=== PATIENT | female | born 1935 | race Caucasian/White ===

== ENCOUNTER 2016-10-12 14:27 | Observation (INO) | payer OTHER, MEDICARE ==
[2016-10-12] MEDS ORDERED: ONDANSETRON 4 MG/2 ML VIAL IVPUSH ONE (14:35)
[2016-10-12] MEDS ORDERED: SODIUM CHLORIDE 1,000 ML IV STA (14:35)
[2016-10-12] MEDS ORDERED: ONDANSETRON 4 MG/2 ML VIAL ONE (15:17)
[2016-10-12 15:33] LABS: BASOPHIL 0.3 % (0-2.0); EOSINOPHIL 0.4 % (0-4.5); MCH 29.6 pg (25.7-33.7); MCHC 34.1 g/dl (32.0-36.0); MEAN CELL VOLUME 86.9 fl (80-96); MEAN PLT VOLUME 8.5 fl (7.5-11.1); NEUTROPHILS 87.7 % (42.8-82.8); PLATELET COUNT 187 K/MM3 (134-434); RDW 13.1 % (11.6-15.6); WHITE BLOOD COUNT 7.6 K/mm3 (4.0-10.8)
[2016-10-12] MEDS ORDERED: CLOPIDOGREL BISULFATE 75 MG TABLET (FP) PO ONE (15:35)
[2016-10-12] MEDS ORDERED: ASPIRIN 81 MG CHEWABLE TABLETS PO ONE (15:35)
[2016-10-12 15:42] LABS: CPK(DFH) 64 IU/L (26-140)
[2016-10-12 15:43] LABS: ALBUMIN 3.7 g/dl (3.5-5.0); ALK PHOS 45 U/L (32-92); AMYLASE 34 U/L (25-125); ANION GAP 9 (8-16); BILIRUBIN,TOTAL 0.8 mg/dl (0.2-1.0); CALCIUM 8.6 mg/dl (8.4-10.2); CO2 19 mmol/L (22-28); CREATININE 0.7 mg/dl (0.6-1.3); GLUCOSE,RANDOM 126 mg/dl (74-106); SGOT/AST 16 U/L (10-42); SGPT/ALT 14 U/L (10-40); TOT PROT 5.7 g/dl (6.4-8.3)
[2016-10-12] MEDS ORDERED: ASPIRIN 81 MG CHEWABLE TABLETS ONE (16:02)
[2016-10-12] MEDS ORDERED: CLOPIDOGREL BISULFATE 75 MG TABLET (FP) ONE (16:03)
[2016-10-12 16:39] LABS: TROPONIN I (DFP) < 0.03 ng/ml (0.03-0.50)
--- NOTE | 2016-10-12 16:55 | PDOC ---
History of Present Illness - General History Source: Patient Exam Limitations: No Limitations - History of Present Illness Initial Comments: 10/12/16 17:00 Patient is a 81 year old female with a significant past medical history of Afib , polymyalgia rheumatica (developed at 72 yo), CAD ( inferior myocardial infarction stenting of the right coronary artery 10/2011 & AR with stenting of the RCA and LAB 05/2016), HTN, HLD, recurrent UTIs(resistant to many strains), Carotid artery stenosis, Esophageal reflux, Adrenal insufficiency, Giant cell arteritis, Ischemic colitis with partial colectomy 2010, Thyroid disease who presents to the ED with nausea and vomiting. Patient states that she woke up this morning feeling weak and dizzy, she began experiencing nausea and vomited nbnb. Patient denies eating anything out of the ordinary for her. She states that she felt the need to lay down due to the nausea and weakness. She reports increased nausea on exertion. She notes that these symptoms are similar to the symptoms of 05/2016 AR which prompted her to present to the ED. She denies any chest pain or SOB. She denies any LOC, fall or recent trauma. She reports good colostomy output and air. Patient had an ECHO in 05/2016: inferior wall hypokinesis with a preserved left ventricular ejection fraction. EF 56%. Mild mitral regurgitation. Allergies: dilaudid, pravachol , simvastatin <Fadumo Aaron - Last Filed: 10/12/16 16:59> <Tresa Lopez - Last Filed: 10/13/16 10:42> - General Chief Complaint: Nausea/Vomiting Stated Complaint: NAUSEA & VOMTING Time Seen by Provider: 10/12/16 14:32 Past History <Fadumo Aaron - Last Filed: 10/12/16 16:59> - Past Medical History Cardiac Disorders: Yes (A-FIB, CAD) CVA: No (CAROTID ARTERY STENOSIS) GI Disorders: Yes (ISCHEMIC COLITIS, GERD) HTN: Yes Hypercholesterolemia: Yes Other medical history: ADRENAL INSUFF, ORTHOSTATIC HYPOTENSION, POLYMYALGIC RHEUMATICA - Surgical History Abdominal Surgery: Yes (PARTIAL COLECTOMY) Cardiac Surgery: Yes (STENT X3) - Psycho/Social/Smoking Cessation Hx Anxiety: No Suicidal Ideation: No Smoking History: Never smoked Hx Alcohol Use: Yes (OCCASIONAL) Drug/Substance Use Hx: No Substance Use Type: None <Tresa Lopez - Last Filed: 10/13/16 10:42> - Past Medical History Allergies/Adverse Reactions: Allergies Allergy/AdvReac Type Severity Reaction Status Date / Time pravastatin sodium Allergy Mild Rash Verified 10/12/16 15:08 [From Pravachol] hydromorphone HCl Allergy Unknown Verified 10/12/16 15:08 [From Dilaudid] simvastatin AdvReac Intermediate Verified 10/12/16 15:08 Home Medications: Ambulatory Orders Acetaminophen [Tylenol Extra Strength] 500 mg PO DAILY PRN 10/12/16 Aspirin [Aspirin EC] 81 mg PO DAILY 10/12/16 Atorvastatin Ca [Lipitor] 10 mg PO HS 10/12/16 Bethanechol Chloride [Urecholine] 25 mg PO TID 10/12/16 Calcium Crb,Cit/D3/Min34/Belén [Citracal + Bone Density Tablet] 1 each PO DAILY 10/12/16 Clopidogrel Bisulfate [Plavix -] 75 mg PO DAILY 10/12/16 Cranberry 500 mg PO DAILY 10/12/16 Estradiol [Estrace] 42.5 gm VG DAILY 10/12/16 Gabapentin [Neurontin] 300 mg PO TID PRN 10/12/16 Hydroxychloroquine Sulfate [Plaquenil] 200 mg PO BID 10/12/16 Lisinopril 5 mg PO DAILY 10/12/16 Methenamine Hippurate [Hiprex [Nf] -] 1 gm PO BID 10/12/16 Metoprolol Tartrate [Lopressor -] 25 mg PO BID 10/12/16 Multivit-Min/Iron/Folic/Lutein [Centrum Silver Women Tablet] 1 each PO DAILY 09/23 Prednisone 5 mg PO DAILY 10/12/16 Zoledronic Acid/Man/Water [RECLAST 5 MG/100 Ml Solution] 5 mg IV ASDIR 10/12/16 Review of Systems - Review of Systems Able to Perform ROS?: Yes Comments:: 10/12/16 17:00 GENERAL/CONSTITUTIONAL:(+)weakness No: fever, chills, loss of appetite. HEAD, EYES, EARS, NOSE AND THROAT: No: change in vision, ear pain, discharge, sore throat, throat swelling. CARDIOVASCULAR: (+)lightheaded No: chest pain, palpitations, syncope RESPIRATORY: No: cough, shortness of breath, wheezing, hemoptysis, stridor. GASTROINTESTINAL: (+)nausea, vomiting. No: abdominal cramping, diarrhea, rectal bleeding, constipation. GENITOURINARY: No: dysuria, hematuria, frequency, urgency, flank pain. MUSCULOSKELETAL: No: back pain, neck pain, joint pain, muscle swelling or pain SKIN: No: lesions, pallor, rash or easy bruising. NEUROLOGIC: No: headache, vertigo, paresthesias ENDOCRINE: No: unexplained weight gain or loss HEMATOLOGIC/LYMPHATIC: No: anemia, easy bleeding, swelling nodes <Fadumo Aaron - Last Filed: 10/12/16 16:59> *Physical Exam - Vital Signs Last Vital Signs Temp Pulse Resp BP Pulse Ox 98.3 F 58 L 16 188/64 98 10/12/16 14:29 10/12/16 14:29 10/12/16 14:29 10/12/16 15:25 10/12/16 14:29 - Physical Exam Comments: 10/12/16 17:00 GENERAL: The patient is in no acute distress. HEAD: Normal with no signs of trauma. EYES: PERRLA, EOMI, sclera anicteric, conjunctiva clear. ENT: Ears normal, nares patent, oropharynx clear without exudates. Moist mucous membranes. NECK: Normal range of motion, supple without lymphadenopathy, JVD, or masses. LUNGS: Breath sounds equal, clear to auscultation bilaterally. No wheezes, and no crackles. HEART:(+)bradycardic. normal S1 and S2 without murmur, rub or gallop. ABDOMEN: (+)ostomy in place. Soft, nontender, normoactive bowel sounds. No guarding, no rebound. EXTREMITIES: Normal range of motion, no edema. No clubbing or cyanosis. No erythema, or tenderness. NEUROLOGICAL: Cranial nerves II through XII grossly intact. Normal speech. No focal neurological deficits. MUSCULOSKELETAL: Back nontender to palpation, no CVA tenderness SKIN: Warm, Dry, normal turgor, no rashes or lesions noted. <Fadumo Aaron - Last Filed: 10/12/16 16:59> - Vital Signs Last Vital Signs Temp Pulse Resp BP Pulse Ox 98.3 F 58 L 16 188/64 98 10/12/16 14:29 10/12/16 14:29 10/12/16 14:29 10/12/16 14:29 10/12/16 14:29 <Tresa Lopez - Last Filed: 10/13/16 10:42> Heart Score/ECG Review #1 ECG reviewed & interpreted by me at: 16:58 10/12/16 16:58 Twelve-lead EKG was performed and reviewed by me. There is normal sinus rhythm with a bradycardiac rate. The axis is normal. The intervals are normal - pr: 178ms, QRS:88ms, QTc:445ms. There are no ST elevations. T wave inversions III Q III, aVF <Tresa Lopez - Last Filed: 10/13/16 10:42> ED Treatment Course - LABORATORY CBC & Chemistry Diagram: 10/12/16 15:15 10/12/16 15:15 - ADDITIONAL ORDERS Additional order review: Laboratory Results 10/12/16 10/12/16 15:15 15:15 Sodium 127 L Potassium 4.2 Chloride 99 Carbon Dioxide 19 L Anion Gap 9 BUN 13 Creatinine 0.7 Creat Clearance w eGFR > 60 Random Glucose 126 H Calcium 8.6 Total Bilirubin 0.8 AST 16 ALT 14 Alkaline Phosphatase 45 Creatine Kinase 64 Troponin I < 0.03 L Total Protein 5.7 L Albumin 3.7 Total Amylase 34 Lipase 27 10/12/16 15:15 RBC 4.19 MCV 86.9 MCHC 34.1 RDW 13.1 MPV 8.5 Neutrophils % 87.7 H Lymphocytes % 5.1 L Monocytes % 6.5 Eosinophils % 0.4 Basophils % 0.3 - Medications Given in the ED: ED Medications Discontinued Medications Generic Name Dose Route Start Last Admin Trade Name Freq PRN Reason Stop Dose Admin Aspirin 162 mg 10/12/16 15:35 10/12/16 16:05 Asa - PO 10/12/16 15:36 162 mg ONCE ONE Administration Clopidogrel Bisulfate 75 mg 10/12/16 15:35 10/12/16 16:05 Plavix - PO 10/12/16 15:36 75 mg ONCE ONE Administration Ondansetron HCl 4 mg 10/12/16 14:35 10/12/16 15:25 Zofran Injection IVPUSH 10/12/16 14:36 4 mg ONCE ONE Administration <Fadumo Aaron - Last Filed: 10/12/16 16:59> - LABORATORY CBC & Chemistry Diagram: 10/13/16 07:25 10/12/16 22:00 <Tresa Lopez - Last Filed: 10/13/16 10:42> Medical Decision Making - Medical Decision Making A portion of this note was documented by scribe services under my direction. I have reviewed the details of the note, within reason, and agree with the documentation with the following case summary and management plan written by me. Nursing documentation reviewed and incorporated into medical decision making 10/12/16 16:55 This patient is an 81-year-old female with a extensive past medical history who presents emergency department with a complaint of nausea and vomiting. Patient states she is recently status post an AR and stenting in May of this year. Her symptoms are reminiscent of the symptoms that brought her to the ER when she had a heart attack. Patient states she felt that she needed to lay down. She's had no fever or chills. She has been nauseous. (+) stool and gas in ostomy. On examination: Bradycardia, no murmur. Lungs clear to auscultation. No abdominal tenderness to palpation. 10/12/16 16:56 Laboratory Tests 10/12/16 10/12/16 10/12/16 15:15 15:15 15:15 WBC 7.6 Hgb 12.4 Hct 36.4 Plt Count 187 Neutrophils % 87.7 H Lymphocytes % 5.1 L Sodium 127 L Potassium 4.2 Chloride 99 Carbon Dioxide 19 L BUN 13 Creatinine 0.7 Random Glucose 126 H Creatine Kinase 64 Troponin I < 0.03 L 10/12/16 16:57 Pending chest x-ray. Case discussed with Dr. Gonzalez Patient images hyponatremia, and bicarbonate of 19. Will continue to hydrate. Will admit to telemetry 10/13/16 10:42 <Tresa Lopez - Last Filed: 10/13/16 10:42> *DC/Admit/Observation/Transfer - Attestations Scribe Attestion: 10/12/16 17:00 Documentation prepared by NII Rhodes, acting as medical staff coordinator for Tresa Lopez MD. <Fadumo Aaron - Last Filed: 10/12/16 16:59> - Discharge Dispostion Admit: Yes <Tresa Lopez - Last Filed: 10/13/16 10:42> Diagnosis at time of Disposition: Hyponatremia Nausea & vomiting Qualifiers: Vomiting type: unspecified Vomiting Intractability: non-intractable Qualified Code(s): R11.2 - Nausea with vomiting, unspecified - Discharge Dispostion Condition at time of disposition: Stable
[2016-10-12] MEDS ORDERED: GABAPENTIN 300 MG CAPSULE (FP) PO PRN (19:44)
[2016-10-12] MEDS ORDERED: ACETAMINOPHEN 500 MG TABLET (FP) PO PRN (19:44)
[2016-10-12] MEDS: HYDROXYCHLOROQUINE SO4 200 MG TABLET (FP) PO SCH (21:34)
--- NOTE | 2016-10-12 21:55 | HP ---
CHIEF COMPLAINT: weak, nausea, vomiting [place]CP: in [place] HISTORY OF PRESENT ILLNESS: This is an 81 year old female with extensive PMH as below who presented to the ED feeling weak and tired since yesterday and today had nausea and vomiting. States that she felt similar to when she had HI in May. On exam, pt feeling better. Weakness improving. Tolerated soup for dinner. Denies chest pain, palpitations. ER course was notable for: (1) Sodium 127 (2) troponin 0.03 Recent Travel: [place] PAST MEDICAL HISTORY: Atrial fibrillation--brief episode 2011, no further episodes CAD- HI 10/2011, s/p stent RCA, HI 05/2016, stenting of RCA and LAD HTN HLD carotid artery stenosis adrenal insufficiency with orthostatic hypotension esophageal reflux Giant cell arteritis, Polymyalgia rheumatica ischemic colitis s/p partial colectomy 2010 thyroid disorder recurrent UTIs PAST SURGICAL HISTORY: stent x 3 partial colectomy B/L cataract Social History: Smoking: in college only Alcohol: occ glass of wine with dinner, last on Wednesday Drugs: pt denies Family History: Mother age 83, esophageal CA Father in 70s, heart trouble. H/o HI in 50s sister healthy Allergies pravastatin sodium [From Pravachol] Allergy (Mild, Verified 10/12/16 15:08) Rash MYALGIA hydromorphone HCl [From Dilaudid] Allergy (Unknown, Verified 10/12/16 15:08) HALLUCINATIONS simvastatin Adverse Reaction (Intermediate, Verified 10/12/16 15:08) INCREASED LFT HOME MEDICATIONS: 3 Medication Instructions Recorded Acetaminophen [Tylenol Extra 500 mg PO DAILY PRN 10/12/16 Strength] Aspirin [Aspirin EC] 81 mg PO DAILY 10/12/16 Atorvastatin Ca [Lipitor] 10 mg PO HS 10/12/16 Bethanechol Chloride [Urecholine] 25 mg PO TID 10/12/16 Calcium Crb,Cit/D3/Min34/Belén 1 each PO DAILY 10/12/16 [Citracal + Bone Density Tablet] Clopidogrel Bisulfate [Plavix -] 75 mg PO DAILY 10/12/16 Cranberry 500 mg PO DAILY 10/12/16 Estradiol [Estrace] 42.5 gm VG DAILY 10/12/16 Gabapentin [Neurontin] 300 mg PO TID PRN 10/12/16 Hydroxychloroquine Sulfate 200 mg PO BID 10/12/16 [Plaquenil] Lisinopril 5 mg PO DAILY 10/12/16 Methenamine Hippurate [Hiprex [Nf] 1 gm PO BID 10/12/16 -] Metoprolol Tartrate [Lopressor -] 25 mg PO BID 10/12/16 Multivit-Min/Iron/Folic/Lutein 1 each PO DAILY 10/12/16 [Centrum Silver Women Tablet] Prednisone 5 mg PO DAILY 10/12/16 Zoledronic Acid/Man/Water [RECLAST 5 mg IV ASDIR 10/12/16 5 MG/100 Ml Solution] REVIEW OF SYSTEMS CONSTITUTIONAL: Present: generalized weakness, malaise Absent: fever, chills, diaphoresis, loss of appetite, weight change HEENT: Absent: rhinorrhea, nasal congestion, throat pain, throat swelling, difficulty swallowing, mouth swelling, ear pain, eye pain, visual changes CARDIOVASCULAR: Absent: chest pain, syncope, palpitations, irregular heart rate, lightheadedness , peripheral edema RESPIRATORY: Absent: cough, shortness of breath, dyspnea with exertion, orthopnea, wheezing, stridor, hemoptysis GASTROINTESTINAL: Present: nausea, vomiting Absent: abdominal pain, abdominal distension, diarrhea, constipation, melena, hematochezia GENITOURINARY: Absent: dysuria, frequency, urgency, hesitancy, hematuria, flank pain, genital pain MUSCULOSKELETAL: Absent: myalgia, arthralgia, joint swelling, back pain, neck pain SKIN: Absent: rash, itching, pallor HEMATOLOGIC/IMMUNOLOGIC: Absent: easy bleeding, easy bruising, lymphadenopathy, frequent infections ENDOCRINE: Absent: unexplained weight gain, unexplained weight loss, heat intolerance, cold intolerance NEUROLOGIC: Absent: headache, focal weakness or paresthesias, dizziness, unsteady gait, seizure, mental status changes, bladder or bowel incontinence PSYCHIATRIC: Absent: anxiety, depression, suicidal or homicidal ideation, hallucinations. PHYSICAL EXAMINATION Vital Signs - 24 hr 3 10/12/16 10/12/16 10/12/16 10/12/16 14:29 15:25 17:04 20:24 Temperature 98.3 F 99.0 F Pulse Rate 58 L 64 Pulse Rate [ 65 Apical] Respiratory 16 18 18 Rate Blood Pressure 188/64 188/64 152/50 Blood Pressure 164/82 [Left Arm] O2 Sat by Pulse 98 96 100 Oximetry (%) GENERAL: Awake, alert, and fully oriented, in no acute distress. HEAD: Normal with no signs of trauma. EYES: Pupils equal, round and reactive to light, extraocular movements intact, sclera anicteric, conjunctiva clear. No lid lag. EARS, NOSE, THROAT: Ears normal, nares patent, oropharynx clear without exudates. Moist mucous membranes. NECK: Normal range of motion, supple without lymphadenopathy, JVD, or masses. LUNGS: Breath sounds equal, clear to auscultation bilaterally. No wheezes, and no crackles. No accessory muscle use. HEART: Regular rate and rhythm, normal S1 and S2 without murmur, rub or gallop. ABDOMEN: Soft, nontender, not distended, normoactive bowel sounds, no guarding, no rebound, no masses. No hepatomegaly or splenomegaly. MUSCULOSKELETAL: Normal range of motion at all joints. No bony deformities or tenderness. No CVA tenderness. UPPER EXTREMITIES: 2+ pulses, warm, well-perfused. No cyanosis. No clubbing. No peripheral edema. LOWER EXTREMITIES: 2+ pulses, warm, well-perfused. No calf tenderness. No peripheral edema. NEUROLOGICAL: Cranial nerves II-XII intact. Normal speech. Normal gait. PSYCHIATRIC: Cooperative. Good eye contact. Appropriate mood and affect. SKIN: Warm, dry, normal turgor, no rashes or lesions noted, normal capillary refill. Laboratory Results - last 24 hr 3 10/12/16 10/12/16 10/12/16 15:15 15:15 15:15 WBC 7.6 RBC 4.19 Hgb 12.4 Hct 36.4 MCV 86.9 MCHC 34.1 RDW 13.1 Plt Count 187 MPV 8.5 Neutrophils % 87.7 H Lymphocytes % 5.1 L Monocytes % 6.5 Eosinophils % 0.4 Basophils % 0.3 Sodium 127 L Potassium 4.2 Chloride 99 Carbon Dioxide 19 L Anion Gap 9 BUN 13 Creatinine 0.7 Creat Clearance w eGFR > 60 Random Glucose 126 H Calcium 8.6 Total Bilirubin 0.8 AST 16 ALT 14 Alkaline Phosphatase 45 Creatine Kinase 64 Troponin I < 0.03 L Total Protein 5.7 L Albumin 3.7 Total Amylase 34 Lipase 27 RAD/ABDOMEN FLAT UPRIGHT RAD/CHEST - PA Vomiting. X-ray of the abdomen supine and upright. Air-filled nondistended small bowel loops are present in the left side of the abdomen likely on the basis of ileus. There is a moderate amount of fecal residue in the ascending and splenic flexure of the colon rule out constipation. Postcholecystectomy surgical metallic clips in the right upper abdomen. There are vascular calcifications in the left upper abdomen. Visualized osseous structures appear intact with mild degenerative changes in both hip joints Impression: Air-filled nondistended small bowel loops in the left mid and lower abdomen likely representing ileus. Findings suggestive of constipation. ECG: Sinus eduardo rate 58, QTC 445, No acute ST/T changes, T wave inversion lead 3 ASSESSMENT/PLAN: 81yF with PMH Afib, CAD, HI, stent, HTN, HLD, giant cell arteritis/PMR, recurrent UTIs, GERD, carotid artery stenosis, adrenal insufficiency, ischemic colitis, thyroid disorder presented to ED with generalized weakness, nausea and vomiting. She is being admitted for observation. Hyponatremia - unclear etiology, ? hypovolemia - gentle IV hydration NS @ 100cc/hr - repeat BMP pending Ileus?/Constipation on xray - MOM x 1 CAD, h/o HI - given symptom similarity to previous HI will trend troponin x 3, first negative - cont home medications: ASA, plavix, metoprolol, lisinopril. HTN - cont home medications, pt states she takes metoprolol 12.5mg BID not 25mg. HLD - cont home lipitor giant cell arteritis/PMR - cont home prednisone, pt states she takes 7.5mg not 5mg, and plaquenil recurrent UTIs - cont home prophylactic medications. DVT PPX - lovenox FEN - NS @ 100cc/hr - BMP @ 9pm - low sodium diet as tolerated. Dispo: pt currently requires inpatient monitoring of her emergent condition. Visit type - Emergency Visit Emergency Visit: Yes ED Registration Date: 10/12/16 Care time: The patient presented to the Emergency Department on the above date and was hospitalized for further evaluation of their emergent condition. - New Patient This patient is new to me today: Yes Date on this admission: 10/12/16 - Critical Care Critical Care patient: No
[2016-10-12] MEDS ORDERED: ATORVASTATIN CA 10 MG TABLET (FP) PO SCH (22:00)
[2016-10-12] MEDS ORDERED: PATIENT'S OWN MEDICATION (NON-FORMULARY) (Methenamine Hippurate 1 GM) PO SCH (22:00)
[2016-10-12] MEDS ORDERED: METOPROLOL TARTRATE 25 MG TABLET (FP) PO SCH (22:00)
[2016-10-12] MEDS: BETHANECHOL CHLORIDE 25 MG TABLET PO SCH (22:05)
[2016-10-12 22:43] VITALS: BMI 25.2
[2016-10-12 22:48] LABS: ANION GAP 9 (8-16); CO2 20 mmol/L (22-28); CREATININE 0.7 mg/dl (0.6-1.3); GLUCOSE,RANDOM 130 mg/dl (74-106)
[2016-10-12 22:49] LABS: CALCIUM 8.2 mg/dl (8.4-10.2); COCKROFT - GAULT NT
[2016-10-12 23:02] LABS: TROPONIN I (DFP) < 0.03 ng/ml (0.03-0.50)
[2016-10-12] MEDS: METOPROLOL TARTRATE 25 MG TABLET (FP) PO SCH (23:06)
[2016-10-12 23:42] LABS: CPK(DFH) 60 IU/L (26-140)
[2016-10-13] MEDS: BETHANECHOL CHLORIDE 25 MG TABLET PO SCH ×2 (06:06→13:24)
[2016-10-13] MEDS ORDERED: MAGNESIUM HYDROX 2400MG/30ML ORAL SUSPENSION 30 ML CUP PO ONE (06:35)
--- NOTE | 2016-10-13 07:38 | PN ---
Physical Exam: SUBJECTIVE: Patient seen and examined OBJECTIVE: Vital Signs Period Temp Pulse Resp BP Sys/Martinez Pulse Ox Last 24 Hr 99.0 F-99.4 F 64-68 18-19 140-152/48-50 96-100 GENERAL: The patient is awake, alert, and fully oriented, in no acute distress. HEAD: Normal with no signs of trauma. EYES: PERRL, extraocular movements intact, sclera anicteric, conjunctiva clear. No ptosis. ENT: Ears normal, nares patent, oropharynx clear without exudates, moist mucous membranes. NECK: Trachea midline, full range of motion, supple. LUNGS: Breath sounds equal, clear to auscultation bilaterally, no wheezes, no crackles, no accessory muscle use. HEART: Regular rate and rhythm, S1, S2 without murmur, rub or gallop. ABDOMEN: Soft, nontender, nondistended, normoactive bowel sounds, no guarding, no rebound, no hepatosplenomegaly, no masses. EXTREMITIES: 2+ pulses, warm, well-perfused, no edema. NEUROLOGICAL: Cranial nerves II through XII grossly intact. Normal speech, gait not observed. PSYCH: Normal mood, normal affect. SKIN: Warm, dry, normal turgor, no rashes or lesions noted Laboratory Results - last 24 hr 10/12/16 10/12/16 22:00 22:00 Sodium 132 L Potassium 4.2 Chloride 103 Carbon Dioxide 20 L Anion Gap 9 BUN 11 Creatinine 0.7 Random Glucose 130 H Calcium 8.2 L Creatine Kinase 60 Troponin I < 0.03 L Active Medications Generic Name Dose Route Start Last Admin Trade Name Freq PRN Reason Stop Dose Admin Acetaminophen 500 mg 10/12/16 19:44 Tylenol - PO DAILY PRN PAIN Aspirin 81 mg 10/13/16 10:00 Ecotrin - PO DAILY MACK Atorvastatin Calcium 10 mg 10/12/16 22:00 10/12/16 21:33 Lipitor - PO 10 mg HS MACK Administration Bethanechol Chloride 25 mg 10/12/16 22:00 10/13/16 06:06 Urecholine - PO 25 mg TID MACK Administration Clopidogrel Bisulfate 75 mg 10/13/16 10:00 Plavix - PO DAILY MACK Enoxaparin Sodium 40 mg 10/13/16 10:00 Lovenox - SQ DAILY MACK Gabapentin 300 mg 10/12/16 19:44 Neurontin - PO TID PRN PAIN Hydroxychloroquine Sulfate 200 mg 10/12/16 22:00 10/12/16 21:34 Plaquenil - PO 200 mg BID [facility] Administration Lisinopril 5 mg 10/13/16 10:00 Prinivil PO DAILY [facility] Metoprolol Tartrate 12.5 mg 10/12/16 22:00 10/12/16 23:06 Lopressor - PO Not Given BID [facility] Multivitamins/Minerals/Vitamin C 1 tab 10/13/16 10:00 Tab-A-Vit - PO DAILY [facility] Non-Formulary Medication 1 each 10/13/16 10:00 Calcium Crb,Cit/D3/Min34/Belén [Citracal + Bone Density Tablet] PO DAILY [facility] Non-Formulary Medication 500 mg 10/13/16 10:00 Cranberry [Cranberry] PO DAILY [facility] Non-Formulary Medication 42.5 gm 10/13/16 10:00 Estradiol [Estrace] VG DAILY [facility] Non-Formulary Medication 1 gm 10/12/16 22:00 Methenamine Hippurate PO BID [facility] Prednisone 7.5 mg 10/13/16 10:00 Deltasone - PO DAILY [facility] ASSESSMENT/PLAN:
[2016-10-13 09:05] LABS: BASOPHIL 0.3 % (0-2.0); MCH 28.9 pg (25.7-33.7); MCHC 32.9 g/dl (32.0-36.0); MEAN CELL VOLUME 87.9 fl (80-96); MEAN PLT VOLUME 8.8 fl (7.5-11.1); NEUTROPHILS 65.3 % (42.8-82.8); PLATELET COUNT 191 K/MM3 (134-434); RDW 13.3 % (11.6-15.6); WHITE BLOOD COUNT 6.1 K/mm3 (4.0-10.8)
[2016-10-13 09:32] VITALS: BP 142/49; PULSE 70; TEMP 98.3
[2016-10-13] MEDS: HYDROXYCHLOROQUINE SO4 200 MG TABLET (FP) PO SCH (09:33)
[2016-10-13] MEDS: METOPROLOL TARTRATE 25 MG TABLET (FP) PO SCH (09:33)
[2016-10-13] MEDS ORDERED: predniSONE 5 MG TABLET (UD) PO SCH ×2 (10:00)
[2016-10-13] MEDS ORDERED: ASPIRIN COATED 81 MG TABLET.EC PO SCH (10:00)
[2016-10-13] MEDS ORDERED: CRANBERRY 500 MG PO SCH (10:00)
[2016-10-13] MEDS ORDERED: CLOPIDOGREL BISULFATE 75 MG TABLET (FP) PO SCH (10:00)
[2016-10-13] MEDS ORDERED: PATIENT'S OWN MEDICATION (NON-FORMULARY) (Estradiol [Estrace] 42.5 GM) VG SCH (10:00)
[2016-10-13] MEDS ORDERED: PATIENT'S OWN MEDICATION (NON-FORMULARY) (Multivit-Min/Iron/Folic/Lutein [Centrum Silver W PO SCH (10:00)
[2016-10-13] MEDS ORDERED: LISINOPRIL 5 MG TABLET (FP) PO SCH (10:00)
[2016-10-13] MEDS ORDERED: ENOXAPARIN NA (PORCINE) 40 MG/0.4 ML DISP.SYRIN SQ SCH (10:00)
[2016-10-13] MEDS ORDERED: MULTIVITAMINS (DAILY MVI) TABLET (FP) PO SCH (10:00)
[2016-10-13 11:05] LABS: CALCIUM 8.1 mg/dl (8.4-10.2); CREATININE 0.6 mg/dl (0.6-1.3)
[2016-10-13 11:06] LABS: CPK(DFH) 53 IU/L (26-140)
[2016-10-13 11:31] LABS: TROPONIN I (DFP) < 0.03 ng/ml (0.03-0.50)
--- NOTE | 2016-10-13 11:54 | EKG ---
Test Reason : Blood Pressure : / mmHG Vent. Rate : 058 BPM Atrial Rate : 058 BPM P-R Int : 178 ms QRS Dur : 088 ms QT Int : 454 ms P-R-T Axes : 043 033 009 degrees QTc Int : 445 ms SINUS BRADYCARDIA OTHERWISE NORMAL ECG NO PREVIOUS ECGS AVAILABLE Confirmed by ALEJANDRO JAY, VIJAYA ([id number]) on 10/13/2016 11:54:21 AM Referred By: BECCA Confirmed By:VIJAYA ALLEN MD
--- NOTE | 2016-10-13 11:59 | DS ---
Physical Exam: SUBJECTIVE: Patient seen and examined, patient reports feeling, denies any chest pain, abdominal pain or shortness of breath, pt is tolear OBJECTIVE: Vital Signs Period Temp Pulse Resp BP Sys/Martinez Pulse Ox Last 24 Hr 98.3 F-99.4 F 64-70 17-19 140-152/48-50 96-100 PHYSICAL EXAM GENERAL: The patient is awake, alert, and fully oriented, in no acute distress. HEAD: Normal with no signs of trauma. EYES: PERRL, extraocular movements intact, sclera anicteric, conjunctiva clear. ENT: Ears normal, nares patent, oropharynx clear without exudates, moist mucous membranes. NECK: Trachea midline, full range of motion, supple. LUNGS: Breath sounds equal, clear to auscultation bilaterally, no wheezes, no crackles, no accessory muscle use. HEART: Regular rate and rhythm, S1, S2 without murmur, rub or gallop. ABDOMEN: Soft, nontender, nondistended, normoactive bowel sounds, no guarding, no rebound, no hepatosplenomegaly, no masses. EXTREMITIES: 2+ pulses, warm, well-perfused, no edema. NEUROLOGICAL: Cranial nerves II through XII grossly intact. Normal speech, gait not observed. PSYCH: Normal mood, normal affect. SKIN: Warm, dry, normal turgor, no rashes or lesions noted. LABS Laboratory Results - last 24 hr 10/12/16 10/12/16 10/13/16 22:00 22:00 07:25 WBC 6.1 RBC 3.97 Hgb 11.5 Hct 34.9 MCV 87.9 MCHC 32.9 RDW 13.3 Plt Count 191 MPV 8.8 Neutrophils % 65.3 D Lymphocytes % 19.7 D Monocytes % 13.7 H D Eosinophils % 1.0 D Basophils % 0.3 Sodium 132 L Potassium 4.2 Chloride 103 Carbon Dioxide 20 L Anion Gap 9 BUN 11 Creatinine 0.7 Random Glucose 130 H Calcium 8.2 L Creatine Kinase 60 Troponin I < 0.03 L 10/13/16 10/13/16 07:25 07:25 WBC RBC Hgb Hct MCV MCHC RDW Plt Count MPV Neutrophils % Lymphocytes % Monocytes % Eosinophils % Basophils % Sodium 135 L Potassium 3.8 Chloride 107 Carbon Dioxide 19 L Anion Gap 9 BUN 9 Creatinine 0.6 Random Glucose 82 D Calcium 8.1 L Creatine Kinase 53 Troponin I < 0.03 L Laboratory Tests 10/12/16 10/12/16 10/13/16 15:15 22:00 07:25 Troponin I < 0.03 L < 0.03 L < 0.03 L HOSPITAL COURSE: Date of Admission:10/12/16 Date of Discharge: 10/13/16 Minutes to complete discharge: 45 Discharge Summary Reason For Visit: HYPONATREMIA Current Active Problems Hyponatremia (Acute) Nausea & vomiting (Acute) Condition: Improved - Instructions Diet, Activity, Other Instructions: continue bland diet then advance diet as tolerated resume all medications as prescribed please follow up with your primary care physician within 1 week if chest pain, abdominal pain, nausea or vomiting develops please return to the emergency department. Disposition: HOME - Home Medications Comprehensive Discharge Medication List: Ambulatory Orders Acetaminophen [Tylenol Extra Strength] 500 mg PO DAILY PRN 10/12/16 Aspirin [Aspirin EC] 81 mg PO DAILY 10/12/16 Atorvastatin Ca [Lipitor] 10 mg PO HS 10/12/16 Bethanechol Chloride [Urecholine] 25 mg PO TID 10/12/16 Calcium Crb,Cit/D3/Min34/Belén [Citracal + Bone Density Tablet] 1 each PO DAILY 10/12/16 Clopidogrel Bisulfate [Plavix -] 75 mg PO DAILY 10/12/16 Cranberry 500 mg PO DAILY 10/12/16 Estradiol [Estrace] 42.5 gm VG DAILY 10/12/16 Gabapentin [Neurontin] 300 mg PO TID PRN 10/12/16 Hydroxychloroquine Sulfate [Plaquenil] 200 mg PO BID 10/12/16 Lisinopril 5 mg PO DAILY 10/12/16 Methenamine Hippurate [Hiprex [Nf] -] 1 gm PO BID 10/12/16 Metoprolol Tartrate [Lopressor -] 25 mg PO BID 10/12/16 Multivit-Min/Iron/Folic/Lutein [Centrum Silver Women Tablet] 1 each PO DAILY 09/23 Prednisone 5 mg PO DAILY 10/12/16 Zoledronic Acid/Man/Water [RECLAST 5 MG/100 Ml Solution] 5 mg IV ASDIR 10/12/16
[2016-10-13] MEDS ORDERED: PT OWN MED DRAWER 7, Y5N ONE (13:22)
[2016-10-13] MEDS ORDERED: ONDANSETRON *ODT* 4 MG TABLET SL ONE (13:30)
[2016-10-13] MEDS ORDERED: POLYETHYLENE GLYCOL 3350 119 GM BTL PO ONE (13:30)
[2016-10-13 14:13] LABS: THYROID STIMULATING HORMONE 2.15 uIU/ml (0.358-3.74)
--- NOTE | 2016-10-14 14:30 | EKG ---
Test Reason : Blood Pressure : / mmHG Vent. Rate : 073 BPM Atrial Rate : 073 BPM P-R Int : 200 ms QRS Dur : 090 ms QT Int : 428 ms P-R-T Axes : 055 022 -01 degrees QTc Int : 471 ms SINUS RHYTHM WITH PREMATURE ATRIAL COMPLEXES NONSPECIFIC T WAVE ABNORMALITY ABNORMAL ECG WHEN COMPARED WITH ECG OF 12-OCT-2016 14:45, PREMATURE ATRIAL COMPLEXES ARE NOW PRESENT Confirmed by DIAMANTE JAY, SHIVA ([id number]) on 10/14/2016 2:30:36 PM Referred By: BIRDIE CISNEROS Confirmed By:SHIVA BOBBY MD
== END 2016-10-13 13:40 | disposition home or self-care (01) ==
LOC: FER 14:27 → FM/S 19:24
PROVIDERS: ADMIT Internal Medicine; ATTEND Nurse Practitioner Family
PROC: 3E0337Z Introduction of Electrolytic and Water Balance Substance into Peripheral Vein, Percutaneous Approach (ICD-10-PCS; principal; 2016-10-12)
PROC: 3E013GC Introduction of Other Therapeutic Substance into Subcutaneous Tissue, Percutaneous Approach (ICD-10-PCS; 2016-10-12)
DX: E87.1 Hypo-osmolality and hyponatremia (principal); R11.2 Nausea with vomiting, unspecified; I48.91 Unspecified atrial fibrillation; Z79.01 Long term (current) use of anticoagulants; I25.10 Atherosclerotic heart disease of native coronary artery without angina pectoris; I25.2 Old myocardial infarction; Z95.5 Presence of coronary angioplasty implant and graft; I10 Essential (primary) hypertension; E78.5 Hyperlipidemia, unspecified; I65.29 Occlusion and stenosis of unspecified carotid artery; E27.40 Unspecified adrenocortical insufficiency; I95.1 Orthostatic hypotension; K21.9 Gastro-esophageal reflux disease without esophagitis; M31.5 Giant cell arteritis with polymyalgia rheumatica; Z87.440 Personal history of urinary (tract) infections; E07.9 Disorder of thyroid, unspecified; K55.9 Vascular disorder of intestine, unspecified; Z90.49 Acquired absence of other specified parts of digestive tract; Z79.82 Long term (current) use of aspirin
CPT/HCPCS: 36415; 71010-TC; 74020-TC; 80048; 80053; 82150; 82550; 83690; 83735; 84443; 84484; 85025; 93005; 93010; 99285-25; G0378

== ENCOUNTER 2021-05-04 08:57 | Emergency (ER) | payer OTHER, MEDICARE ==
[2021-05-04 09:07] VITALS: BMI 20.2
[2021-05-04 09:25] VITALS: BP 136/54; PULSE 67; TEMP 98.4
[2021-05-04] MEDS ORDERED: ACETAMINOPHEN 1000 MG/100 ML VIAL IVPB ONE (09:56)
[2021-05-04] MEDS ORDERED: SODIUM CHLORIDE 0.9% 500 ML INFUS.BAG IV ONE (09:56)
[2021-05-04] MEDS ORDERED: ACETAMINOPHEN INJECTION 100 ML IVPB ONE (10:10)
[2021-05-04 10:17] LABS: BASO % 0.4 % (0-2.0); EOS % 1.1 % (0-4.5); HEMATOCRIT 40.3 % (32.4-45.2); HEMOGLOBIN 13.2 GM/dL (10.7-15.3); LYMPH % 9.9 % (8-40); MCH 28.4 pg (25.7-33.7); MCHC 32.9 g/dl (32.0-36.0); MEAN CELL VOLUME 86.5 fl (80-96); MEAN PLT VOLUME 8.4 fl (7.5-11.1); MONO % 12.7 % (3.8-10.2); NEUT % 75.9 % (42.8-82.8); PLATELET COUNT 217 10^3/uL (134-434); RBC 4.65 M/mm3 (3.60-5.2); RDW 15.2 % (11.6-15.6); WHITE BLOOD COUNT 12.6 K/mm3 (4.0-10.0)
[2021-05-04 10:31] LABS: INR 1.06 (0.83-1.09); PROTHROMBIN TIME (PATIENT) 12.4 SEC (9.7-13.0)
[2021-05-04 10:35] LABS: ALBUMIN 3.2 g/dl (3.4-5.0); CALCIUM 9.2 mg/dL (8.5-10.1)
[2021-05-04 10:36] LABS: BLOOD UREA NITROGEN 29.4 mg/dL (7-18); MAGNESIUM 2.2 mg/dL (1.8-2.4)
[2021-05-04 10:39] LABS: CREATININE 0.9 mg/dL (0.55-1.3)
[2021-05-04 10:41] LABS: BILIRUBIN,TOTAL 0.7 mg/dL (0.2-1)
== END 2021-05-04 16:14 | disposition home or self-care (01) ==
LOC: JER 08:57
PROC: 3E033GC Introduction of Other Therapeutic Substance into Peripheral Vein, Percutaneous Approach (ICD-10-PCS; principal; 2021-05-04)
DX: R53.1 Weakness (principal); W19.XXXA Unspecified fall, initial encounter
CPT/HCPCS: 36415; 70450-TC; 71046-TC-FY; 72125-TC; 72128-TC; 72131-TC; 73030-TC-LT-FY; 73060-TC-LT-FY; 73200-TC-RT; 80053; 82550; 83735; 84484; 85025; 85610; 85730; 93005; 93010; 96374; 99285-25; C9803; J0131; U0003; U0005